=== PATIENT | female | born 1990 | race Caucasian/White ===

== ENCOUNTER 2016-12-18 08:44 | Inpatient (IN) | payer BC ==
[2016-12-18] VITALS (23 sets, daily range): BP systolic 106–136; BP diastolic 61–84
[~2016-12-18] VITALS: Ht 160 cm; Wt 76.8 kg
[2016-12-18] MEDS ORDERED: ALLEGRA-D 121 TABLET PO (09:56)
[2016-12-18] MEDS ORDERED: PRENATAL TABLE1 EAC3 PO (09:57)
[2016-12-18 10:24] LABS: EOSINOPHIL (%) 0.7 % (0-5); EOSINOPHIL COUNT 0.1 K/uL (0-0.3); HEMATOCRIT 33.3 % (36.0-46.0); IMMATURE GRANULOCYTE (%) 0.7 % (0.0-0.7); IMMATURE GRANULOCYTE COUNT 0.1 K/uL; LYMPHOCYTE COUNT 2.3 K/uL (1.0-2.8); MCH 30.9 PG (29.0-34.0); MCHC 34.5 G/DL (30.0-36.0); MCV 89.5 FL (83-99); MEAN PLAT.VOLUME 12.8 uM^3 (9.5-12.4); MONOCYTE (%) 5.5 % (3-12); MONOCYTE COUNT 0.7 K/uL (0-0.8); PLATELET COUNT 110 K/uL (156-360); RBC DIS.WIDTH-CV 13.3 % (11.8-14.6); RBC DIS.WIDTH-SD 43.6 % (39-53); RED BLOOD COUNT 3.72 M/uL (3.80-5.20); WHITE BLOOD COUNT 12.2 K/uL (4.1-10.2)
[2016-12-19] VITALS (10 sets, daily range): BP systolic 115–133; BP diastolic 63–78
[2016-12-20 06:33] LABS: EOSINOPHIL (%) 1.6 % (0-5); EOSINOPHIL COUNT 0.2 K/uL (0-0.3); IMMATURE GRANULOCYTE (%) 0.7 % (0.0-0.7); IMMATURE GRANULOCYTE COUNT 0.1 K/uL; INSTRUMENT ABS NEUTROPHIL CT 9.5 K/uL; MCV 91.2 FL (83-99); MEAN PLAT.VOLUME 13.5 uM^3 (9.5-12.4); MONOCYTE (%) 4.6 % (3-12); MONOCYTE COUNT 0.6 K/uL (0-0.8); NEUTROPHIL (%) 70.8 % (45-76); NEUTROPHIL COUNT 9.5 K/uL (1.8-6.4); PLATELET COUNT 89 K/uL (156-360); RBC DIS.WIDTH-CV 13.7 % (11.8-14.6); RBC DIS.WIDTH-SD 45.5 % (39-53); WHITE BLOOD COUNT 13.4 K/uL (4.1-10.2)
[2016-12-20 06:39] LABS: RED BLOOD COUNT 2.74 M/uL (3.80-5.20)
[2016-12-20 08:08] VITALS: BP 118/70
[2016-12-20 15:26] VITALS: BP 115/69
[2016-12-20 22:25] VITALS: BP 138/83
[2016-12-21 07:29] VITALS: BP 121/83
[2016-12-21] MEDS ORDERED: IBUPROFEN800 MG PO (10:31)
[2016-12-21] MEDS ORDERED: CHROMAGEN,1 CAPSULE PO (10:31)
== END 2016-12-21 12:30 | disposition home or self-care (01) | DRG 775 ==
LOC: LDRP-OP 08:44 → 2WEST 08:47 → LDRP-OP 01-14 14:57
PROVIDERS: Advanced Practice Midwife
PROC: 00HU33Z Insertion of Infusion Device into Spinal Canal, Percutaneous Approach (ICD-10-PCS; 2016-12-18)
PROC: 3E0R3CZ (ICD-10-PCS; 2016-12-18)
PROC: 10907ZC Drainage of Amniotic Fluid, Therapeutic from Products of Conception, Via Natural or Artificial Opening (ICD-10-PCS; 2016-12-18)
PROC: 10E0XZZ Delivery of Products of Conception, External Approach (ICD-10-PCS; principal; 2016-12-19)
PROC: 0UQGXZZ Repair Vagina, External Approach (ICD-10-PCS; principal; 2016-12-19)
DX: O71.4 Obstetric high vaginal laceration alone (principal); O63.0 Prolonged first stage (of labor); O99.02 Anemia complicating childbirth; D62 Acute posthemorrhagic anemia; O48.0 Post-term pregnancy; Z88.0 Allergy status to penicillin; Z3A.40 40 weeks gestation of pregnancy; Z37.0 Single live birth
CPT/HCPCS: 85025; C1755; G0378; J3010; J7120